=== PATIENT | male | born 2005 | race Two or more races ===

== ENCOUNTER 2023-03-04 14:26 | Emergency (ER) | payer MEDICAID, OTHER ==
[~2023-03-04] VITALS: Ht 190.5 cm; Wt 133.5 kg
[2023-03-04 15:04] VITALS: BP 133/97; PULSE 89; RESP 18; TEMP 98.4; O2SAT 97
[2023-03-04] MEDS ORDERED: KETOROLAC TROMETH 60MG/2ML VIAL IM ONE (15:15)
[2023-03-04] MEDS ORDERED: METH-1182 PO (17:51)
[2023-03-04] MEDS ORDERED: IBUP-1456 PO (17:51)
== END 2023-03-04 17:56 | disposition home or self-care (01) ==
LOC: ER 14:26
DX: S39.012A Strain of muscle, fascia and tendon of lower back, initial encounter (principal); M54.32 Sciatica, left side; X50.0XXA Overexertion from strenuous movement or load, initial encounter; Y93.89 Activity, other specified; Y92.89 Other specified places as the place of occurrence of the external cause; Y99.8 Other external cause status
CPT/HCPCS: 72131; 99284; J1885